=== PATIENT | female | born 1990 | race Hispanic/Latino ===

== ENCOUNTER 2017-08-16 09:53 | Outpatient (CLI) | payer MEDICAID ==
[2017-08-16 12:41] VITALS: BP 126/67
== END 2017-08-16 12:40 | disposition home or self-care (01) ==
LOC: LAB 09:53 → TRG 12:20 → LAB 12:40
PROVIDERS: ATTEND Obstetrics & Gynecology
DX: O36.0130 Maternal care for anti-D [Rh] antibodies, third trimester, not applicable or unspecified (principal); Z87.891 Personal history of nicotine dependence; Z3A.30 30 weeks gestation of pregnancy
CPT/HCPCS: 86850; 86900; 86901; 96372; J2790

== ENCOUNTER 2017-10-27 21:41 | Outpatient (CLI) | payer MEDICAID ==
[2017-10-27] MEDS ORDERED: NORMOSOL-R PH 7.4 1,000 ML IV ONE ×2 (22:25→22:27)
[2017-10-28 12:38] VITALS: BP 122/77
== END 2017-10-28 00:33 | disposition home or self-care (01) ==
LOC: TRG 21:41
PROVIDERS: ATTEND Obstetrics & Gynecology
DX: O48.0 Post-term pregnancy (principal); Z3A.40 40 weeks gestation of pregnancy
CPT/HCPCS: 59025; 96360

== ENCOUNTER 2017-11-01 08:24 | Inpatient (IN) | payer MEDICAID ==
[2017-11-01] MEDS ORDERED: NORMOSOL-R PH 7.4 1,000 ML IV SCH (09:00)
[2017-11-01] MEDS ORDERED: BRETHINE SUB-Q PRN (10:46)
[2017-11-01] MEDS ORDERED: MINERAL OIL PO PRN (10:46)
[2017-11-01] MEDS ORDERED: PHENERGAN PO PRN (10:46)
[2017-11-01] MEDS ORDERED: BRETHINE IVP PRN (10:46)
[2017-11-01] MEDS ORDERED: ePHEDrine SULFATE IV PRN ×2 (10:46→20:13)
[2017-11-01] MEDS ORDERED: XYLOCAINE 2% INFILTRATI ONE (10:46)
[2017-11-01 10:52] LABS: Basophils # (Auto) 0.1 K/mm3 (0.0-0.1); Basophils % (Auto) 0.7 % (0.0-1.8); Eosinophils # (Auto) 0.3 K/mm3 (0.0-0.4); Eosinophils % (Auto) 2.9 % (0.0-4.3); Hematocrit 31.7 % (30.3-42.9); Hemoglobin 10.1 gm/dl (10.1-14.3); Lymphocytes # (Auto) 1.8 K/mm3 (1.2-5.4); Mean Corpuscular HGB Conc 32 % (30-34); Mean Corpuscular Hemoglobin 25 pg (28-32); Mean Corpuscular Volume 79 fl (79-97); Monocytes % (Auto) 9.2 % (0.0-7.3); Platelet Count 221 K/mm3 (140-440); Red Blood Count 4.03 M/mm3 (3.65-5.03); Red Cell Distribution Width 14.8 % (13.2-15.2)
[2017-11-01] MEDS ORDERED: PITOCin/NS 30 UNIT/500ML 30 UNITS/500 ML BAG IV SCH ×3 (11:00→12:00)
[2017-11-01] MEDS ORDERED: PITOCin/NS 20 UNIT/1000ML DRIP 20 UNITS/1,000 ML BAG IV SCH (11:00)
[2017-11-01] MEDS: NORMOSOL-R PH 7.4 1,000 ML IV SCH ×3 (11:17→19:36)
[2017-11-01] MEDS: STADOL IV PRN ×2 (15:57→18:23)
[2017-11-01] MEDS ORDERED: NARCAN 2 MG/2 ML IV PRN (20:13)
--- NOTE | 2017-11-01 20:15 | Anesthesia Consultation ---
Anesthesia Consult and Med Hx Date of service: 11/01/17 - Airway Anesthetic Teeth Evaluation: Good ROM Head & Neck: Adequate Mental/Hyoid Distance: Adequate Mallampati Class: Class I Intubation Access Assessment: Good - Pulmonary Exam CTA: Yes - Cardiac Exam Cardiac Exam: RRR - Pre-Operative Health Status ASA Pre-Surgery Classification: ASA2 Proposed Anesthetic Plan: Epidural - Pulmonary Hx Asthma: Yes (daily rescue inhaler) COPD: No Hx Pneumonia: No - Cardiovascular System Hx Hypertension: No Hx Coronary Artery Disease: No Hx Heart Attack/AMI: No Hx Angina: No Hx Cardia Arrhythmia: No Hx Heart Murmur: No - Central Nervous System Hx Seizures: No Hx Psychiatric Problems: Yes (ANXIETY-ON ZOLOFT) - Endocrine Hx Renal Disease: No Hx End Stage Renal Disease: No Hx Hypothyroidism: No Hx Hyperthyroidism: No - Hematic Hx Anemia: No Hx Sickle Cell Disease: No - Other Systems Hx Alcohol Use: No
--- NOTE | 2017-11-01 20:16 | Anesthesia Day of Surgery ---
Anesthesia Day of Surgery - Day of Surgery Patient Examined: Yes Patient H&P Reviewed: Yes Patient is NPO: Yes
[2017-11-01] MEDS ORDERED: fentaNYL-BUPIV 2 MCG/ML-0.125% 200 MCG/100 ML BAG EPIDURAL SCH (21:00)
[2017-11-01] MEDS ORDERED: ZOFRAN ONE (21:23)
--- NOTE | 2017-11-01 22:35 | History and Physical Report ---
History of Present Illness Date of examination: 11/01/17 Date of admission: 11/01/17 08:24 Chief complaint: I'm overdue History of present illness: Patient is a 27 year old who presents for post dates induction of labor at 41 weeks gestation with EDC 10/26/17. She has had an uncomplicated course . She is positive for HSV. Past History Past Medical History: asthma, thyroid disease Past Surgical History: no surgical history [employer] History: herpes Family/Genetic History: none Social history: - Obstetrical History Expected Date of Delivery: 10/26/17 Actual Gestation: 40 Week(s) 6 Day(s) : 3 Number of Living Children: 2 Medications and Allergies Allergies Allergy/AdvReac Type Severity Reaction Status Date / Time No Known Allergies Allergy Verified 08/16/17 12:23 Home Medications Medication Instructions Recorded Confirmed Last Taken Type Vit-Fe Fumar-FA [ 1 each PO QDAY #60 tablet 01/17/16 11/01/17 10/30/17 Rx Vitamin] Budesonide/Formoterol Fumarate 2 puff INHALATION BID 08/16/17 11/01/17 08/16/17 09:00 History [Symbicort 80-4.5 Mcg Inhaler] 1 Sertraline HCl [Zoloft] 50 mg PO DAILY 08/16/17 11/01/17 10/31/17 History ALBUTEROL Inhaler [ProAir HFA 2 puff INHALATION PRN 11/01/17 11/01/17 11/01/17 History Inhaler] Cetirizine HCl [Zyrtec] 10 mg PO DAILY 11/01/17 11/01/17 Unknown History Valacyclovir HCl [Valtrex] 1,000 mg PO DAILY 11/01/17 11/01/17 10/31/17 History Active Meds: Active Medications Butorphanol Tartrate (Stadol) 2 mg IV Q2H PRN PRN Reason: Pain , Severe (7-10) Last Admin: 11/01/17 18:23 Dose: 2 mg Ephedrine Sulfate (Ephedrine Sulfate) 10 mg IV Q2M PRN PRN Reason: Hypotension Ephedrine Sulfate (Ephedrine Sulfate) 10 mg IV Q2M PRN PRN Reason: Hypotension Parenteral Electrolytes (Normosol-R Ph 7.4) 1,000 mls @ 125 mls/hr IV DIRECT ОЛЬГА Last Admin: 11/01/17 19:36 Dose: 125 mls/hr Oxytocin/Sodium Chloride (Pitocin/Ns 20 Unit/1000ml Drip) 20 units in 1,000 mls @ 125 mls/hr IV DIRECT ОЛЬГА Oxytocin/Sodium Chloride (Pitocin/Ns 30 Unit/500ml) 30 units in 500 mls @ 4 mls /hr IV TITR ОЛЬГА; Protocol Last Titration: 11/01/17 15:00 Dose: 16 mls/hr, 16 mls/hr Fentanyl/Bupivacaine/Sodium Chlor (Fentanyl-Bupiv 2 Mcg/Ml-0.125%) 200 mcg in 100 mls @ 12 mls/hr EPIDURAL TITR ОЛЬГА; Protocol Last Admin: 11/01/17 21:25 Dose: 12 mls/hr Mineral Oil (Mineral Oil) 30 ml PO QHS PRN PRN Reason: Constipation Naloxone HCl (Narcan 2 Mg/2 Ml) 0.2 mg IV Q5M PRN PRN Reason: Respiratory sedation Promethazine HCl (Phenergan) 25 mg PO Q6H PRN PRN Reason: Nausea And Vomiting Terbutaline Sulfate (Brethine) 0.25 mg SUB-Q ONCE PRN PRN Reason: Hyperstimulation/Hypertonicity Terbutaline Sulfate (Brethine) 0.25 mg IVP ONCE PRN PRN Reason: Hyperstimulation/Hypertonicity Review of Systems All systems: negative Constitutional: fatigue Genitourinary: pelvic pain, contractions - Vital Signs Vital signs: Vital Signs Temp Resp 97.8 F 18 11/01/17 09:16 11/01/17 09:16 Temp Pulse Resp BP Pulse Ox 97 F L 68 16 127/71 100 11/01/17 21:50 11/01/17 22:29 11/01/17 21:50 11/01/17 22:29 11/01/17 22:29 - Physical Exam Breasts: Positive: deferred Cardiovascular: Regular rate, Normal S1, Normal S2 Lungs: Positive: Clear to auscultation, Normal air movement Abdomen: Positive: normal appearance, soft, normal bowel sounds Genitourinary (Female): Positive: normal external genitalia, normal perenium Vagina: Positive: normal moisture Uterus: Positive: normal size, normal contour - Obstetrical Cervical Dilatation: 2 Cervical Effacement Percentage: 30 station: -3 Uterine Contraction Pattern: Irregular Uterine Tone Measurement Phase: Contraction Results Result Diagrams: 11/01/17 09:45 Abnormal lab results 11/01/17 Range/Units 09:45 WBC 11.2 H (4.5-11.0) K/mm3 MCH 25 L (28-32) pg Glenn % (Auto) 9.2 H (0.0-7.3) % Glenn # 1.0 H (0.0-0.8) K/mm3 Seg Neutrophils % 71.2 H (40.0-70.0) % Seg Neutrophils # 8.0 H (1.8-7.7) K/mm3 All other labs normal. Assessment and Plan IUP at 40.6 for postdates induction of labor. ADmit for pitocin. AROM when needed. Anticipate .
--- NOTE | 2017-11-02 01:28 | Procedure Note ---
OB Delivery Note - Delivery Date of Delivery: 11/02/17 Surgeon: SUGEY MADDOX Estimated blood loss: 200cc - Vaginal Delivery presentation: vertex Delivery position: OA Intrapartum events: meconium Delivery induction: oxytocin Delivery augmentation: pitocin Delivery monitor: external FHT, external uterine Route of delivery: Delivery placenta: spontaneous Delivery cord: nuchal cord, 3 umbilical vessels Episiotomy: none Delivery laceration: none Anesthesia: epidural Delivery comments: Viable male delivered over intact perineum with loose nuchal cord easily reduced on the perineum. Weight 9 pounds 1 ounce. 4108 grams. Apgars 7, 9. Infant placed on maternal abdomen. Cord clamped and cut when done pulsating. Placenta delivered spontaneously and intact with 3vc. No lacerations. Patient tolerated procedure well. - Infant A at 1 minute: 7 at 5 minutes: 9 Infant Gender: Male (9 pounds 1 ounce)
[2017-11-02] MEDS: MOTRIN PO SCH ×3 (02:06→23:18)
[2017-11-02] MEDS ORDERED: TUCKS PAD TP PRN (03:16)
[2017-11-02] MEDS ORDERED: SODIUM CHLORIDE FLUSH SYRINGE 10 ML IV NR (03:16)
[2017-11-02] MEDS ORDERED: TYLENOL PO PRN (03:16)
[2017-11-02] MEDS ORDERED: PHENERGAN PR PRN (03:16)
[2017-11-02] MEDS ORDERED: MILK OF MAGNESIA PO PRN (03:16)
[2017-11-02] MEDS ORDERED: DULCOLAX PR PRN (03:16)
[2017-11-02] MEDS ORDERED: LANSINOH TP PRN (03:16)
[2017-11-02] MEDS ORDERED: MOTRIN PO SCH (03:16)
[2017-11-02] MEDS ORDERED: ZOFRAN IV PRN (03:16)
[2017-11-02] MEDS ORDERED: PHENERGAN PO PRN (03:16)
[2017-11-02] MEDS ORDERED: BENADRYL PO PRN (03:16)
[2017-11-02] MEDS: NORCO 5/325 PO PRN ×2 (03:39→11:53)
[2017-11-02] MEDS ORDERED: PRENATAL VITAMIN PO SCH (10:00)
[2017-11-02] MEDS ORDERED: COLACE PO SCH (10:00)
[2017-11-02 13:54] LABS: Hematocrit 28.2 % (30.3-42.9); Hemoglobin 9.1 gm/dl (10.1-14.3)
[2017-11-03] MEDS: MOTRIN PO SCH (05:10)
[2017-11-03] MEDS ORDERED: BOOSTRIX IM ONE (06:00)
[2017-11-03] MEDS: NORCO 5/325 PO PRN (10:00)
[2017-11-03 19:25] VITALS: BP 122/78
== END 2017-11-03 13:30 | disposition home or self-care (01) | DRG 774 ==
LOC: LD 08:24 → OB 11-02 02:28
PROVIDERS: ADMIT Obstetrics & Gynecology; ATTEND Obstetrics & Gynecology
PROC: 10E0XZZ Delivery of Products of Conception, External Approach (ICD-10-PCS; principal; 2017-11-02)
PROC: 3E0R3BZ Introduction of Anesthetic Agent into Spinal Canal, Percutaneous Approach (ICD-10-PCS; 2017-11-02)
PROC: 00HU33Z Insertion of Infusion Device into Spinal Canal, Percutaneous Approach (ICD-10-PCS; 2017-11-02)
DX: O48.0 Post-term pregnancy (principal); O98.32 Other infections with a predominantly sexual mode of transmission complicating childbirth; O99.52 Diseases of the respiratory system complicating childbirth; O77.0 Labor and delivery complicated by meconium in amniotic fluid; O69.81X0 Labor and delivery complicated by cord around neck, without compression, not applicable or unspecified; Z3A.41 41 weeks gestation of pregnancy; J45.909 Unspecified asthma, uncomplicated; Z37.0 Single live birth; A60.00 Herpesviral infection of urogenital system, unspecified
CPT/HCPCS: 36415; 85014; 85018; 85025; 85461; 86592; 86850; 86900; 86901; 99211; A6250; G0463; J0595; J2405; J2590; J2790